=== PATIENT | male | born 1955 | race Caucasian/White ===

== ENCOUNTER 2016-11-02 10:01 | Emergency (ER) | payer OTHER ==
[2016-11-02 10:05] VITALS: BP 130/74; BMI 28.0
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
[2016-11-02] MEDS ORDERED: NS 1000 ML 1,000 ML IV ONE (10:46)
[2016-11-02 10:52] LABS: BASOPHILS # (AUTO) 0.1 X10^3/uL (0.0-0.1); BASOPHILS % (AUTO) 0.7 % (0.2-1.0); EOSINOPHILS # (AUTO) 0.1 x10^3/uL (0.0-0.2); EOSINOPHILS % (AUTO) 0.7 % (0.9-2.9); HEMATOCRIT 45.6 % (42.0-54.0); HEMOGLOBIN 15.1 g/dL (13.5-18.0); LYMPHOCYTES # (AUTO) 1.5 X10^3/uL (1.3-2.9); LYMPHOCYTES % (AUTO) 12.1 % (21.0-51.0); MEAN CORPUSCULAR HEMOGLOBIN 28.4 pg (27.0-34.0); MEAN CORPUSCULAR HGB CONC 33.1 g/dL (33.0-35.0); MEAN CORPUSCULAR VOLUME 85.8 fL (80.0-100.0); MEAN PLATELET VOLUME 9.2 fL (7.4-11.0); MONOCYTES # (AUTO) 0.8 x10^3/uL (0.3-0.8); MONOCYTES % (AUTO) 5.9 % (0.0-13.0); NEUTROPHILS # (AUTO) 10.3 x10^3/uL (2.2-4.8); NEUTROPHILS % (AUTO) 80.6 % (42.0-75.0); PLATELET COUNT 219 X10^3/uL (150.0-450.0); RED BLOOD COUNT 5.32 X10^6/uL (4.7-6.0); RED CELL DISTRIBUTION WIDTH 13.6 % (11.6-16.5); WHITE BLOOD COUNT 12.7 X10^3/uL (3.6-10.0)
[2016-11-02 10:58] LABS: ALANINE AMINOTRANSFERASE 27 Units/L (12-78); ALKALINE PHOSPHATASE 108 Units/L (46-116); ASPARTATE AMINO TRANSFERASE 17 Units/L (15-37); BLOOD UREA NITROGEN 23 mg/dL (7-18); CALCIUM 9.2 mg/dL (8.5-10.1); CARBON DIOXIDE 27.3 mmol/L (21-32); CHLORIDE 93 mmol/L (98-107); SODIUM 132 mmol/L (136-145); eGFR BLACK RACES > 60 (>60); eGFR NON BLACK RACES > 60 (>60)
[2016-11-02 11:01] LABS: COR NA(FOR HYPERGLY) 143 mmol/L (136-145); GLUCOSE 542 mg/dL (65-99)
[2016-11-02] MEDS ORDERED: HUMULIN R IV ONE (11:06)
[2016-11-02] MEDS ORDERED: NS 1000 ML 1,000 ML ONE (11:08)
[2016-11-02] MEDS ORDERED: HUMULIN R ONE (11:09)
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
[2016-11-02 12:23] LABS: ABG BASE EXCESS 3.9 mmol/L (-2.0-2.0)
[2016-11-02 12:25] LABS: ABG HCO3 30.5 mmol/L (22-26)
[2016-11-02 12:26] LABS: ABG ALLEN TEST POS
[2016-11-02] MEDS ORDERED: SNACK - Diabetic Appropriate PO SCH (20:00)
== END 2016-11-02 13:03 | disposition home or self-care (01) ==
LOC: ER 10:11
DX: S09.8XXA Other specified injuries of head, initial encounter (principal); R73.9 Hyperglycemia, unspecified; M25.511 Pain in right shoulder; M19.90 Unspecified osteoarthritis, unspecified site; R51 Headache
CPT/HCPCS: 36415; 36600; 70450; 72125; 73030; 80053; 82009; 82803; 85025; 96365; 96374; 99283; A4222; J1815

== ENCOUNTER 2017-01-01 16:30 | Emergency (ER) | payer OTHER ==
[2017-01-01 16:34] VITALS: BP 81/54; BMI 27.7
--- NOTE | 2017-01-01 16:40 | DR.GENAD ---
HPI - HPI Comment HPI Comment: DIABETIC PATIENT WITH POLYUIRIA AND POLYDYPSIA WITH LARGE AMOUNT OF KETONES IN URINE WHEN TESTED AT HOME. NO FEVER. NO VOMITING OR DIARRHEA. - Complaint/Symptoms Chief Complaint Doctors Comments: URINE SHOULD LARGE AMOUNT OF KETONES. FEELS WEAK. Chief Complaint:: pt rankin tones are high showing a large amount - Nurses notes reviewed Nurses Notes Review: Yes - Source History Provided: Patient - Mode of Arrival Mode of Arrival: Ambulatory - Timing Onset of Chief Complaint: 01/01/17 Came on: Suddenly - Duration Duration: Constant Duration: Days - Severity Severity: Moderate PMH - PMH Past Medical History: Yes Past Medical History: Arthritis, CVA, Depression, Diabetes, GERD, Hypertension Past Surgical History: Yes Surgical History: Cholecystectomy - Family History History of Family Medical Conditions: Yes Family Medical History: [place], Heart Failure - Social History Does patient currently use any type of tobacco product: No Have you used tobacco products in the last 12 months: No Type of Tobacco Use: None Does any household member use tobacco: No Alcohol Use: None Do you use any recreational Drugs:: No Lives With: Family Lives Where: Home - infectious screening In the last 2 months have you had wt loss of >10#?: NO Have you had fever, night sweats or hemotysis?: No Have you traveled outside the country in the last 6 months?: No Isolation: Standard ROS - Review of Systems Constitutional: Weakness, Fatigue. negative: Chills, Diaphoresis, Fever, Loss of Appetite Eyes: No Symptoms Reported. negative: Eye Pain, Discharge ENTM: No Symptoms Reported. negative: Ear Pain, Nose Discharge, Nose Congestion , Throat Pain Respiratoy: No Symptoms Reported. negative: Productive Cough, Non-Productive Cough, Short of Breath, Wheezing, Hemoptysis Cardiovascular: No Symptoms Reported. negative: Chest Pain, Edema Gastrointestinal/Abdominal: No Symptoms Reported, Nausea. negative: Abdominal Pain Genitourinary: No Symptoms Reported. negative: Dysuria, Frequency, Hematuria Neurological: Depressed, Weakness Musculoskeletal: Muscle Pain Integumentary: Dryness Hematologic/Lymphatic: No Symptoms Reported Endocrine: Increased Thirst, Increased Urine. negative: Flushing All Other Systems: Reviewed and Negative PE - Vital Signs Vitals: Temperature 97.8 F Pulse Rate 90 Respiratory Rate 18 Blood Pressure [Right Arm] 136/62 Blood Pressure 81/54 O2 Sat by Pulse Oximetry 99 - General Limitations: No Limitations General Appearance: Alert - Head Head Exam: Normal Inspection - Eyes Eye exam: Normal Appearance - ENT ENT Exam: Normal External Ear Exam External Ear Exam: Normal External Inspection TM/Canal Exam: Bilateral Normal Nose Exam: Normal Nose Exam Mouth Exam: Normal Inspection Throat Exam: Normal Inspection - Neck Neck Exam: Normal Inspection - Chest Chest Inspection: Symmetric Chest Wall Rise - Respiratory Respiratory Exam: Normal Lung Sounds Bilat Respiratory Exam: Bilateral Clear to Auscultation - Cardiovascular Cardiovascular Exam: Regular Rate, Normal Rhythm, Normal Heart Sounds - Abdominal Exam Abdominal Exam: Normal Bowel Sounds, Soft. negative: Tenderness - Extremities Extremities Exam: Normal Inspection - Back Back Exam: Normal Inspection - Neurologic Neurological Exam: Alert, Oriented X3 - Psychiatric Psychiatric Exam: Normal Affect, Normal Mood - Skin Skin Exam: Normal Color [facility] - Additional Information Additional Information Obtained From: Family - Differential Diagnosis Differential Diagnosis: HYPERGLYCEMIA, DKA, UTI, WEAKNESS Course - Treatment Treatment: SEE ORDERS. FELLING SLIGHTLY BETTER AFTER IV FLUIDS. DO NOT WANT TO STAY IN HOSPITAL TO CONTINUE IV FLUIDS AND FURTHER MANAGEMENT. SIGN OUT AMA. - Education/Counseling Education/Counseling: Patient, Family, Education Educated On: Treatment, Diagnosis ROR - Labs Reviewed Laboratory Results Reviewed?: Yes Result Diagrams: 01/01/17 17:10 01/01/17 17:10 Laboratory: WBC 11.4 X10^3/uL (3.6-10.0) H 01/01/17 17:10 RBC 5.12 X10^6/uL (4.7-6.0) 01/01/17 17:10 Hgb 14.9 g/dL (13.5-18.0) 01/01/17 17:10 Hct 43.8 % (42.0-54.0) 01/01/17 17:10 MCV 85.5 fL (80.0-100.0) 01/01/17 17:10 MCH 29.0 pg (27.0-34.0) 01/01/17 17:10 MCHC 33.9 g/dL (33.0-35.0) 01/01/17 17:10 RDW 12.7 % (11.6-16.5) 01/01/17 17:10 Plt Count 266 X10^3/uL (150.0-450.0) 01/01/17 17:10 MPV 8.8 fL (7.4-11.0) 01/01/17 17:10 Neut % 77.1 % (42.0-75.0) H 01/01/17 17:10 Lymph % 15.7 % (21.0-51.0) L 01/01/17 17:10 [place] % 5.5 % (0.0-13.0) 01/01/17 17:10 Eos % 1.2 % (0.9-2.9) 01/01/17 17:10 Baso % 0.5 % (0.2-1.0) 01/01/17 17:10 Neut # 8.8 x10^3/uL (2.2-4.8) H 01/01/17 17:10 Lymph # 1.8 X10^3/uL (1.3-2.9) 01/01/17 17:10 [place] # 0.6 x10^3/uL (0.3-0.8) 01/01/17 17:10 Eos # 0.1 x10^3/uL (0.0-0.2) 01/01/17 17:10 Baso # 0.1 X10^3/uL (0.0-0.1) 01/01/17 17:10 Absolute Nucleated RBC 0.1 /100WBC 01/01/17 17:10 Sample Site Lbra 01/01/17 19:49 ABG pH 7.370 (7.35-7.45) 01/01/17 19:49 ABG pCO2 44.0 mmHg (35.0-45.0) 01/01/17 19:49 ABG pO2 25.0 mmHg (80.0-100.0) L* 01/01/17 19:49 ABG HCO3 25.4 mmol/L (22-26) 01/01/17 19:49 ABG O2 Saturation 43.0 % (90-100) L* 01/01/17 19:49 ABG Base Excess -0.1 mmol/L (-2.0-2.0) 01/01/17 19:49 Rolando Test Na 01/01/17 19:49 A-a Gradient 70.0 mmHg 01/01/17 19:49 FiO2 21.000 01/01/17 19:49 Blood Gas Comments Hannah abg well-mtf 01/01/17 19:49 Sodium 135 mmol/L (136-145) L 01/01/17 17:10 Corrected Sodium 138 mmol/L (136-145) 01/01/17 17:10 Potassium 4.7 mmol/L (3.5-5.1) 01/01/17 17:10 Chloride 98 mmol/L (98-107) 01/01/17 17:10 Carbon Dioxide 25.1 mmol/L (21-32) 01/01/17 17:10 BUN 30 mg/dL (7-18) H 01/01/17 17:10 Creatinine 1.15 mg/dL (0.70-1.30) 01/01/17 17:10 Est GFR (MDRD) Af Amer > 60 (>60) 01/01/17 17:10 Est GFR (MDRD) Non-Af > 60 (>60) 01/01/17 17:10 Glucose 219 mg/dL (65-99) H 01/01/17 17:10 Calcium 9.4 mg/dL (8.5-10.1) 01/01/17 17:10 Corrected Calcium TNP 01/01/17 17:10 Total Bilirubin 0.60 mg/dL (0.2-1.0) 01/01/17 17:10 AST 17 Units/L (15-37) 01/01/17 17:10 ALT 24 Units/L (12-78) 01/01/17 17:10 Alkaline Phosphatase 88 Units/L (46-116) 01/01/17 17:10 Total Protein 8.0 g/dL (6.4-8.2) 01/01/17 17:10 Albumin 3.9 g/dL (3.4-5.0) 01/01/17 17:10 Globulin 4.1 g/dL (2.5-4.5) 01/01/17 17:10 Albumin/Globulin Ratio 1.0 Ratio (1.1-2.1) L 01/01/17 17:10 Acetone, Semi-Quant Small (NEGATIVE) H 01/01/17 17:10 - Diagnosis Discharge Problem: 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
[2017-01-01 17:29] LABS: BASOPHILS # (AUTO) 0.1 X10^3/uL (0.0-0.1); BASOPHILS % (AUTO) 0.5 % (0.2-1.0); EOSINOPHILS # (AUTO) 0.1 x10^3/uL (0.0-0.2); EOSINOPHILS % (AUTO) 1.2 % (0.9-2.9); HEMATOCRIT 43.8 % (42.0-54.0); HEMOGLOBIN 14.9 g/dL (13.5-18.0); LYMPHOCYTES # (AUTO) 1.8 X10^3/uL (1.3-2.9); LYMPHOCYTES % (AUTO) 15.7 % (21.0-51.0); MEAN CORPUSCULAR HGB CONC 33.9 g/dL (33.0-35.0); MEAN CORPUSCULAR VOLUME 85.5 fL (80.0-100.0); MEAN PLATELET VOLUME 8.8 fL (7.4-11.0); MONOCYTES # (AUTO) 0.6 x10^3/uL (0.3-0.8); MONOCYTES % (AUTO) 5.5 % (0.0-13.0); NEUTROPHILS # (AUTO) 8.8 x10^3/uL (2.2-4.8); NEUTROPHILS % (AUTO) 77.1 % (42.0-75.0); PLATELET COUNT 266 X10^3/uL (150.0-450.0); RED BLOOD COUNT 5.12 X10^6/uL (4.7-6.0); RED CELL DISTRIBUTION WIDTH 12.7 % (11.6-16.5); WHITE BLOOD COUNT 11.4 X10^3/uL (3.6-10.0)
[2017-01-01 17:34] LABS: ALANINE AMINOTRANSFERASE 24 Units/L (12-78); ALBUMIN 3.9 g/dL (3.4-5.0); ALKALINE PHOSPHATASE 88 Units/L (46-116); ASPARTATE AMINO TRANSFERASE 17 Units/L (15-37); BLOOD UREA NITROGEN 30 mg/dL (7-18); CALCIUM 9.4 mg/dL (8.5-10.1); CARBON DIOXIDE 25.1 mmol/L (21-32); CHLORIDE 98 mmol/L (98-107); COR NA(FOR HYPERGLY) 138 mmol/L (136-145); CREATININE 1.15 mg/dL (0.70-1.30); GLUCOSE 219 mg/dL (65-99); SODIUM 135 mmol/L (136-145); eGFR BLACK RACES > 60 (>60); eGFR NON BLACK RACES > 60 (>60)
[2017-01-01 17:36] LABS: SERUM ACETONE SMALL (NEGATIVE)
[2017-01-01] MEDS ORDERED: NS 1000 ML 1,000 ML IV ONE (18:07)
[2017-01-01] MEDS ORDERED: NS 1000 ML 1,000 ML ONE (18:11)
[2017-01-01 19:55] LABS: ABG BASE EXCESS -0.1 mmol/L (-2.0-2.0); ABG HCO3 25.4 mmol/L (22-26)
== END 2017-01-01 20:37 | disposition left against medical advice (07) ==
LOC: ER 16:38
DX: E10.10 Type 1 diabetes mellitus with ketoacidosis without coma (principal); R53.1 Weakness; E86.0 Dehydration
CPT/HCPCS: 36415; 36600; 80053; 82009; 82803; 85025; 96365; 96367; 99283; A4222